=== PATIENT | female | born 1965 | race Caucasian/White ===

== ENCOUNTER 2021-01-12 17:41 | Emergency (ER) | payer BC, SELFPAY ==
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
[2021-01-12 17:44] VITALS: BP 115/82; PULSE 90; RESP 16; TEMP 36.6; O2SAT 99; BMI 18.1
[2021-01-12] MEDS: Diphth,Pertus(ACell),Tet Adult 0.5 ML SYRINGE IM (18:49)
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
== END 2021-01-12 19:57 | disposition home or self-care (01) ==
PROVIDERS: Emergency Provider Internal Medicine; PCP Internal Medicine
DX: S83.92XA Sprain of unspecified site of left knee, initial encounter (principal); S80.212A Abrasion, left knee, initial encounter; V18.0XXA Pedal cycle driver injured in noncollision transport accident in nontraffic accident, initial encounter; M25.462 Effusion, left knee; Y93.55 Activity, bike riding; Y92.414 Local residential or business street as the place of occurrence of the external cause; Y99.9 Unspecified external cause status
CPT/HCPCS: 73560; 90471; 90715; 99283; 99284

== ENCOUNTER → 2021-01-15 13:13 | Outpatient (BNVA) | payer BC, SELFPAY | PROVIDERS: PCP Internal Medicine; Visit Provider Physician Assistant | DX: M25.462 Effusion, left knee (principal); E03.9 Hypothyroidism, unspecified; K85.90 Acute pancreatitis without necrosis or infection, unspecified; Z88.2 Allergy status to sulfonamides; Z88.8 Allergy status to other drugs, medicaments and biological substances | CPT/HCPCS: 20610 ==

== ENCOUNTER 2021-01-29 08:24 | Outpatient (REF) | payer BC, SELFPAY ==
--- NOTE | ~2021-01-29 | XR_ITS ---
EXAMINATION: XR KNEE STANDING, BILATERAL XR KNEE, LEFT CLINICAL INFORMATION: Pain. COMPARISON: Left knee radiographs dated 01/12/2021 TECHNIQUE: AP standing view of the right and left knee. Lateral and sunrise views of the left knee. FINDINGS: There is a mildly displaced fracture through the lateral third of the patella with a resultant fracture gap measuring 0.3 cm. The fracture is in the sagittal plane and contacts the articular surface with approximately 0.3 cm of cortical step-off. No joint space narrowing or marginal osteophytes. No osseous erosion. Small joint effusion, decreased when compared to the prior examination. XR/XR knee standing BI IMPRESSION: Mildly displaced fracture through the lateral aspect of the patella which contacts the articular surface. Small joint effusion, decreased when compared to the prior examination.
--- NOTE | ~2021-01-29 | XR_ITS ---
EXAMINATION: XR KNEE STANDING, BILATERAL XR KNEE, LEFT CLINICAL INFORMATION: Pain. COMPARISON: Left knee radiographs dated 01/12/2021 TECHNIQUE: AP standing view of the right and left knee. Lateral and sunrise views of the left knee. FINDINGS: There is a mildly displaced fracture through the lateral third of the patella with a resultant fracture gap measuring 0.3 cm. The fracture is in the sagittal plane and contacts the articular surface with approximately 0.3 cm of cortical step-off. No joint space narrowing or marginal osteophytes. No osseous erosion. Small joint effusion, decreased when compared to the prior examination. XR/XR knee LT 2V IMPRESSION: Mildly displaced fracture through the lateral aspect of the patella which contacts the articular surface. Small joint effusion, decreased when compared to the prior examination.
== END 2021-01-29 08:25 | disposition home or self-care (01) ==
LOC: HO.HOSX 08:24
PROVIDERS: Visit Provider Orthopaedic Surgery
DX: S82.002D Unspecified fracture of left patella, subsequent encounter for closed fracture with routine healing (principal); X58.XXXD Exposure to other specified factors, subsequent encounter
CPT/HCPCS: 73560; 73565

== ENCOUNTER 2021-02-26 08:21 | Outpatient (REF) | payer BC, SELFPAY ==
--- NOTE | ~2021-02-26 | XR_ITS ---
EXAMINATION: XR KNEE, BILATERAL XR KNEE, LEFT CLINICAL INFORMATION: Knee pain. COMPARISON: 01/29/2021 TECHNIQUE: Standing view both knees with 2 additional views left knee. FINDINGS: Again seen is the lateral patellar fracture. There is still a 0.3 cm step-off present but fracture fragment ends appear less well defined indicating some interval healing. A small joint effusion persists. Standing views of both knees show medial and lateral compartments both maintained. XR/XR knee standing BI IMPRESSION: Healing fracture left patella. Small joint effusion remains.
--- NOTE | ~2021-02-26 | XR_ITS ---
EXAMINATION: XR KNEE, BILATERAL XR KNEE, LEFT CLINICAL INFORMATION: Knee pain. COMPARISON: 01/29/2021 TECHNIQUE: Standing view both knees with 2 additional views left knee. FINDINGS: Again seen is the lateral patellar fracture. There is still a 0.3 cm step-off present but fracture fragment ends appear less well defined indicating some interval healing. A small joint effusion persists. Standing views of both knees show medial and lateral compartments both maintained. XR/XR knee LT 2V IMPRESSION: Healing fracture left patella. Small joint effusion remains.
== END 2021-02-26 08:22 | disposition home or self-care (01) ==
LOC: HO.HOSX 08:21
PROVIDERS: Visit Provider Orthopaedic Surgery
DX: S82.002D Unspecified fracture of left patella, subsequent encounter for closed fracture with routine healing (principal); M25.462 Effusion, left knee
CPT/HCPCS: 73560; 73565

== ENCOUNTER 2021-03-12 07:15 | Outpatient (REF) | payer BC, SELFPAY | END 2021-03-12 07:16 | disposition home or self-care (01) | LOC: HO.HOSX 07:15 | PROVIDERS: Visit Provider Physician Assistant | DX: Z13.89 Encounter for screening for other disorder (principal) ==

== ENCOUNTER 2021-03-15 09:47 | Outpatient (REF) | payer BC, SELFPAY ==
--- NOTE | ~2021-03-15 | XR_ITS ---
EXAMINATION: XR KNEE, LEFT CLINICAL INFORMATION: Pain COMPARISON: None TECHNIQUE: Two views of the left knee. FINDINGS: There is a small joint effusion. Prepatellar soft tissue swelling is noted. There is no acute fracture or dislocation. There is some medial joint space loss. No bony erosion is seen. Some early patellofemoral spurring. XR/XR knee LT 2V IMPRESSION: Some mild early degenerative changes and small effusion with prepatellar soft tissue increase. If further evaluation is warranted consider MR for full evaluation.
--- NOTE | ~2021-03-15 | XR_ITS ---
EXAMINATION: XR KNEE, LEFT CLINICAL INFORMATION: Pain. COMPARISON: 02/26/2021 TECHNIQUE: [place] image left patella. FINDINGS: Exam does demonstrate lateralization of the patella. There is also irregularity of the articulating facet of the lateral patella with the adjacent femur. This could be chronic or the result of previous injury. An acute fracture, of course, cannot be excluded here. XR/XR knee LT 1V IMPRESSION: Lateralization of the patella and irregularity of the lateral patella as described. I cannot exclude acute fracture in the appropriate clinical scenario versus healed fracture injury or degenerative change. Again if further evaluation is warranted recommendation is MRI. Overall the appearance is similar to previous study from 02/26/2021
== END 2021-03-15 09:48 | disposition home or self-care (01) ==
LOC: HO.HOSX 09:47
PROVIDERS: PCP Internal Medicine; Visit Provider Physician Assistant
DX: S82.002D Unspecified fracture of left patella, subsequent encounter for closed fracture with routine healing (principal)
CPT/HCPCS: 73560

== ENCOUNTER 2022-06-16 09:15 | Emergency (ER) | payer BC, OTHER, SELFPAY ==
--- NOTE | ~2022-06-16 | XR_ITS ---
EXAMINATION: XR CHEST CLINICAL INFORMATION: Shortness of breath COMPARISON: None TECHNIQUE: 2 views of the chest were obtained. FINDINGS: No significant abnormality is noted involving the heart, lungs, mediastinum, bony thorax or soft tissues. Mild scoliosis convex right. XR/XR chest 2V IMPRESSION: No acute disease.
[2022-06-16 09:16] VITALS: BP 114/77; PULSE 84; RESP 19; TEMP 36.6; O2SAT 96; BMI 18.8
--- NOTE | 2022-06-16 09:42 | ED.URI ---
HPI - URI/Sore Throat General Chief Complaint: Upper Respiratory Symptoms Stated Complaint: diff breathing Time Seen by Provider: 06/16/22 09:42 Source: patient Mode of arrival: ambulatory Limitations: no limitations History of Present Illness HPI Narrative: 57-year-old female with a longstanding history of tobacco use who presents with 4 days of cough, shortness of breath and wheezing. Patient was seen by her primary care on Friday and given a Zithromax in for presumed bronchitis. Patient reports at that time she had a negative COVID screen. 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 Patient has not done any flu testing. Patient reports some chest discomfort with coughing. She denies any leg swelling or leg pain, vomiting, diarrhea, abdominal pain, headache, neck pain, neck stiffness, skin rash. Patient reports at home her pulse oximeter was 85% Related Data Home Medications Medication Instructions Recorded Confirmed levothyroxine 150 mcg capsule 150 mcg PO DAILY 01/15/21 Previous Rx's Medication Instructions Recorded prednisone 20 mg tablet 40 mg PO DAILY #8 tabs 06/16/22 Allergies Allergy/AdvReac Type Severity Reaction Status Date / Time azithromycin Allergy Unknown Hives Verified 10/29/21 12:32 doxycycline Allergy Unknown hives Verified 10/29/21 12:32 sulfacetamide Allergy Unknown itching Verified 10/29/21 12:32 tetracycline Allergy Unknown itching Verified 10/29/21 12:32 sulfamethoxazole Allergy itching Verified 10/29/21 12:32 [From Bactrim] trimethoprim [From Bactrim] Allergy itching Verified 10/29/21 12:32 Guiatuss Allergy Unknown unknown Uncoded 10/29/21 12:32 Review of Systems Review of Systems: Yes all other systems are reviewed and are negative Constitutional: Constitutional: Reports no additional constitutional complaints, Denies body ache(s), Denies chills, Denies fever(s), Denies headache(s) and Denies weakness Eyes: Eyes: Reports no additional eye complaints and Denies change in vision ENT: Reports system reviewed and no additional complaints, except as documented, Denies dizziness, Denies headache(s), Denies nasal congestion, Denies nasal discharge and Denies neck pain Cardiovascular: Cardiovascular: Reports no additional cardiovascular complaints, Reports chest pain (chest discomfort with coughing only ), Denies leg edema and Reports dyspnea Respiratory: Respiratory: Reports no additional respiratory complaints, Reports cough and Reports dyspnea Gastrointestinal: Gastrointestinal: Reports no additional gastrointestinal complaints, Denies abdominal pain, Denies diarrhea, Denies nausea and Denies vomiting Genitourinary: Genitourinary: Reports no additional female genitourinary complaints and Denies urinary incontinence Musculoskeletal: Musculoskeletal: Reports no additional musculoskeletal complaints, Denies back pain, Denies arthralgias, Denies joint swelling, Denies neck pain, Denies numbness and Denies tingling Integumentary/Breasts: Skin/Breast: Reports system reviewed and no additional complaints, except as docu and Denies rash Neurologic: Reports system reviewed and no additional complaints, except as documented, Denies Abnormal speech present, Denies dizziness, Denies headache(s), Denies numbness, Denies tingling and Denies weakness PMFSH Past Medical History Attestation statement: The following information was validated with the patient. Source: old records reviewed and nursing notes reviewed Medical History Hypothyroid Pancreatitis Surgical History History of shoulder surgery Social History Social History (Updated 06/16/22 @ 10:01 by Kiersten Swanson NP) Patient Tobacco Use Status: Current everyday Tobacco user Advance Directives: No Advance Directives Information Provided: No Current occupational status: employed Current occupation: rt handed/[employer] Physical Exam Vital Signs: Vital Signs: Last Vital Signs Temp 98 F 06/16/22 09:16 Pulse 75 06/16/22 11:22 Resp 16 06/16/22 11:22 BP 114/77 06/16/22 09:16 Pulse Ox 96 06/16/22 09:16 O2 Del Method 06/16/22 09:16 BMI result Body Mass Index 18.8 Const: General: cooperative, healthy appearing, comfortable and no acute distress Orientation/consciousness: patient oriented x3 Limitations: no limitations HEENT: Head: Yes normal to inspection Ears: hearing grossly normal bilaterally and TM's normal bilaterally General nose exam: Normal external nose present Face and sinus: Yes normal facial exam Mouth: Normal oral and palatal mucosa present Throat: Yes posterior oropharynx normal, Yes tonsils normal and Yes uvula midline Eyes: General: appearance normal, both eyes and all related structures Pupils: Equal, round and reactive pupils present Neck: Neck: Yes normal visual inspection, Yes full ROM, Yes no lymphadenopathy and Yes no meningeal signs Chest: Chest palpation & inspection: normal inspection of the chest Resp: Other: Mild expiratory wheezing Effort & Inspection: normal respiratory effort Cardio: Rate: regular rate Rhythm: regular rhythm Peripheral pulses: Peripheral pulses 2+ throughout GI: Inspection: Yes normal to inspection Palpation (GI): Soft to palpation and nontender Auscultation: normal bowel sounds Back/Spine/Pelvis: Thoracic/Lumbar Spine: thoracic and lumbar spine normal to inspection Skin: General skin exam: no rashes or lesions noted Neuro: General: patient oriented x3, no meningeal signs, no focal motor deficits and normal sensation to monofilament Cranial nerves: Yes Equal, round and reactive pupils present Cognition (Neuro): normal cognition Speech: No Abnormal speech present Gait exam (Neuro): Normal gait present Motor exam (neuro): 5/5 motor strength present throughout Extrem: General: Yes normal to inspection Course Course Course Narrative: Patient flu screen is positive. Patient with no hypoxia or tachypnea or tachycardia or fever here. Lungs with some mild wheezing which improved with albuterol MDI. Reviewed worrisome signs and symptoms of when to return to the emergency room. Comfortable plan for discharge home. Medications Administered Discontinued Medications Generic Name Dose Route Start Last Admin Trade Name Freq PRN Reason Stop Dose Admin Albuterol Sulfate 2 puff 06/16/22 09:48 06/16/22 11:19 Albuterol Sulfate 90 Mcg 8 Gm Inhaler INHALE 06/16/22 09:49 2 puff ONCE ONE Administration Prednisone 60 mg 06/16/22 09:48 06/16/22 10:43 Prednisone 20 Mg Tablet PO 06/16/22 09:49 60 mg ONCE ONE Administration Medical Decision Making Medical Decision Making [facility] Narrative: 57-year-old female with a history of tobacco smoking here with complaints of 4 days of cough, wheezing, shortness of breath, chest discomfort with coughing despite being on azithromycin since Friday. On arrival vital are stable. Oxygen saturation is greater than 95%. Patient with mild expiratory wheezing on exam. Exam otherwise is benign. Will obtain chest x-ray, since testing for flu, COVID, RSV. Will give albuterol MDI for wheezing and oral prednisone Differential Diagnosis Differential Diagnoses: The differential diagnosis associated with the presentation includes Viral syndrome, influenza, pneumonia Low concern for PE with no hypoxia, no tachypnea, no tachycardia, no clinical findings concerning for DVT, no history of recent travel or recent surgery Lab Data MDM Lab Attestation statement: I reviewed the patient's lab results. Labs: Lab Results 06/16/22 Range/Units 09:21 Influenza Type A (PCR) POSITIVE A (Negative) Influenza Type B (PCR) NEGATIVE (Negative) RSV RNA Qual (PCR) NEGATIVE (Negative) SARS-CoV-2 RNA (RT-PCR) NEGATIVE (Negative) Independent Interpretation I performed an independent interpretation of an: Plain X-Ray (I independently reviewed the chest x-ray and there was no signs of pneumonia) Radiology Impression Discussion of test interpretation with radiology: I have reviewed the radiologist's reading. Radiologist Impression: EXAMINATION: XR CHEST CLINICAL INFORMATION: Shortness of breath COMPARISON: None TECHNIQUE: 2 views of the chest were obtained. FINDINGS: No significant abnormality is noted involving the heart, lungs, mediastinum, bony thorax or soft tissues. Mild scoliosis convex right. XR/XR chest 2V IMPRESSION: No acute disease. Prescription Management I considered prescription management with: Antiviral Patient has had symptoms for 4 days. Patient's flu screen is positive. At this time I do not feel that Tamiflu would be helpful. This was discussed with the patient. Patient will be discharged home with albuterol MDI to use as needed for cough or wheezing Discharge Plan Discharge Clinical Impression: Bronchitis, Influenza Patient Disposition: Home, Self-Care Instructions: How to Use a Metered-Dose Inhaler (ED), Influenza (ED), Acute Bronchitis (ED) Additional Instructions: Continue your antibiotics X-ray shows no signs of pneumonia Monitor your pulse oximeter at home return for any worsening symptoms Alternate Motrin or Tylenol for pain or fever at home Testing for flu is positive Testing for COVID/RSV are negative Prescriptions: New prednisone 20 mg tablet 40 mg PO DAILY Qty: 8 0RF No Action levothyroxine 150 mcg capsule 150 mcg PO DAILY Referrals: Daniella Eastman MD [Primary Care Provider] - 1 week (for ER follow-up) Stand Alone Forms: Work/School Release Interventions: ED Discharge Assessment Last Done: 06/16/22 11:28 Discharge Date/Time: 06/16/22 11:32
[2022-06-16] MEDS: predniSONE 20 MG TABLET 60 MG PO (10:43)
[2022-06-16 10:47] LABS: Influenza A PCR POSITIVE (Negative); Influenza B PCR NEGATIVE (Negative); Resp Syncy Virus RNA Qual PCR NEGATIVE (Negative); SARS COV2 PCR INHOUSE NEGATIVE (Negative)
[2022-06-16] MEDS: Albuterol Sulfate 90 MCG 8 GM INHALER 2 PUFF INHALE (11:19)
[2022-06-16 11:22] VITALS: PULSE 75; RESP 16; O2SAT 95
== END 2022-06-16 11:32 | disposition home or self-care (01) ==
PROVIDERS: Emergency Provider Emergency Medicine; PCP Internal Medicine
DX: J10.1 Influenza due to other identified influenza virus with other respiratory manifestations (principal); R06.02 Shortness of breath; R05.9 Cough, unspecified; F17.200 Nicotine dependence, unspecified, uncomplicated; Z71.6 Tobacco abuse counseling; Z20.822 Contact with and (suspected) exposure to COVID-19
CPT/HCPCS: 0241U; 71046; 94640; 99284

== ENCOUNTER 2023-04-11 09:17 | Outpatient (AMB) | payer OTHER, SELFPAY ==
--- NOTE | 2023-04-11 09:35 | A.OFFVIS_ITS ---
Intake Intake Visit Reasons: New Prob- Rt Shoulder pain Intake Note: Cony is a 57 year old right hand dominant female who presents today for a evaluation for her right shoulder pain. patient reports ongoing pain for many years and finds relief with cortisone injections. She states that she has RTC repair about 3 years ago at [facility]. Allergies azithromycin Allergy (Unknown, Verified 04/11/23 09:42) Hives doxycycline Allergy (Unknown, Verified 04/11/23 09:42) hives sulfacetamide Allergy (Unknown, Verified 04/11/23 09:42) itching tetracycline Allergy (Unknown, Verified 04/11/23 09:42) itching sulfamethoxazole [From Bactrim] Allergy (Verified 04/11/23 09:42) itching trimethoprim [From Bactrim] Allergy (Verified 04/11/23 09:42) itching Guiatuss Allergy (Unknown, Uncoded 10/29/21 12:32) unknown HPI New Prob- Rt Shoulder pain HPI Details 57-year-old right hand dominant female charleen bianchi presents in the office today for an evaluation of right shoulder pain. The patient reports ongoing pain for many years. She confirms relief with cortisone injections. Patient confirms a right rotator cuff repair 3 years ago at [facility]. 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 No ecchymosis, erythema, or edema. Full shoulder ROM in all planes. Negative cross-body reach. Negative empty can. Negative drop arm. NVI. Office Procedures Injection Trigger Point Multi right upper trapezium three point Trigger Point Multiple: [id number]- Trigger point injection =/>3 Results Reviewed Results Reviewed: 04/11/23 09:58 Lidocaine HCl 2 % MPF [Xylocaine 2 % MPF] 5 ml .ROUTE .[facility] ONE Assessment & Plan Assessment & Plan (1) Trigger point of right shoulder region: Code(s): M25.511 - Pain in right shoulder Plan Ms. Packer is a 57-year-old right hand dominant female who presents in the office today for an evaluation of right shoulder pain. The patient reports ongoing pain for many years. She confirms relief with cortisone injections. Patient confirms a right rotator cuff repair 3 years ago at [facility]. The patient was offered trigger point injections in the right shoulder with plain lidocaine. The patient was explained the risk, benefits, and alternatives to receiving this injection. After receiving consent for the procedure, the patient had three injections done while in office today into the trap muscle by myself and under the supervision of Dr. Cardenas. The patient tolerated the procedure well with no complications. It was recommended for the patient to follow up in 1 week if possible. However she has elected to not schedule at this time. She states she will call the office shoulder she wish to proceed. Follow up will be in one week, or sooner if needed. X-rays of the right shoulder obtained while in the office today and reviewed by me, Erica Gibbs PA-C, revealed no acute fracture or dislocation. Orders: Orders XR shoulder RT min 2V Today M25.519 - Pain in unspecified shoulder Patient Instructions: Scribed for Erica Gibbs PA-C by Lesly Bee medical research associate, on 04/11/2023 at 9:18 am, EST. Coding Level of Care Code New Pt Level 4 (15016) Diagnoses Trigger point of right shoulder region M25.511 CPT Codes Details - Trigger Point Multiple: [id number]- Trigger point injection =/>3 ([id number])
== END 2023-04-11 10:39 | disposition home or self-care (01) ==
PROVIDERS: PCP Internal Medicine; Visit Provider Physician Assistant
DX: M25.511 Pain in right shoulder (principal)
CPT/HCPCS: 20553; 99214

== ENCOUNTER 2023-04-11 15:11 | Outpatient (REF) | payer OTHER, SELFPAY ==
--- NOTE | ~2023-04-11 | XR_ITS ---
EXAMINATION: XR SHOULDER, RIGHT CLINICAL INFORMATION: Pain in unspecified shoulder. COMPARISON: None available. TECHNIQUE: Three views of the right shoulder. FINDINGS: Dextroscoliosis of the imaged upper thoracic spine. Moderate degenerative changes in the acromioclavicular joint with joint space narrowing and hypertrophic change. Degenerative changes with hypertrophic change along the glenoid. Focal cortical defect with cystic lucency along the superolateral aspect of the humeral head. XR/XR shoulder RT min 2V IMPRESSION: Focal cortical defect with cystic lucency along the superolateral aspect of the humeral head. Moderate degenerative changes in the acromioclavicular joint. Additional imaging with CT scan or MRI should be considered for better visualization as these modalities are much more sensitive for detection of fracture or other underlying pathology.A 1.8 cm stone identified in the gallbladder. A 1.8 cm stone identified in the gallbladder. A 1.8 cm stone identified in the gallbladder.
== END 2023-04-11 15:12 | disposition home or self-care (01) ==
LOC: HO.HOSX 15:11
PROVIDERS: Visit Provider Physician Assistant
DX: M25.511 Pain in right shoulder (principal)
CPT/HCPCS: 20553; 73030

== ENCOUNTER 2023-12-08 08:04 | Outpatient (AMB) | payer OTHER, SELFPAY ==
--- NOTE | 2023-12-08 08:20 | AM.OFFWIN_ITS ---
Intake Vital Signs 12/08/23 08:21 Height 5 ft 7 in BP 110/62 Blood Pressure Location Lt brachial Position Sitting Pulse 62 Pulse Source Pulse Oximeter Temp 98.2 F Temp Source Temporal Artery Scan Pulse Oximetry (%) 97 Intake Visit Reasons: EP both ears blocked Intake Note: pt is here for ear blockage bilateral Patient Tobacco Use Status: Current everyday Tobacco user Allergies azithromycin Allergy (Unknown, Verified 12/08/23 08:21) Hives doxycycline Allergy (Unknown, Verified 12/08/23 08:21) hives sulfacetamide Allergy (Unknown, Verified 12/08/23 08:21) itching tetracycline Allergy (Unknown, Verified 12/08/23 08:21) itching sulfamethoxazole [From Bactrim] Allergy (Verified 12/08/23 08:21) itching trimethoprim [From Bactrim] Allergy (Verified 12/08/23 08:21) itching Guiatuss Allergy (Unknown, Uncoded 10/29/21 12:32) unknown Do you need a note to return to daycare/school/sports/work: No HPI HPI Comments History of Present Illness Details 58 y/o female patient who presents to [facility] in clinic with c/o bilateral ear blockage. This is a chronic issue, and usually she sees ENT for routine Lavage/Irrigation. Reports using Debrox for 3 days with no improvement. 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 Physical Exam Vital Signs: Last Vital Signs Temp 98.2 F 12/08/23 08:21 Pulse 62 12/08/23 08:21 BP 110/62 12/08/23 08:21 Pulse Ox 97 12/08/23 08:21 Const General: comfortable and no acute distress Orientation/consciousness: patient oriented x3 HEENT Ears: external ears normal and TM abnormal obstructed by cerumen bilateral Neuro General: patient oriented x3, gait normal and moves all extremities Psych Speech and movement: Normal speech and movement present Office Procedures Cerumen Removal From which ear canal was the cerumen removed: bilateral Removal: irrigation Notes: patient tolerated procedure well [id number] Irrigation/Lavage Assessment & Plan Assessment & Plan (1) Impacted cerumen of both ears: Code(s): H61.23 - Impacted cerumen, bilateral Plan: In office Bilateral Ear Lavage, un-successful. Pt declined Debrox Drops. Pt wants to go to ED. Coding Level of Care Code Est Pt Level 3 (58024) Diagnoses Impacted cerumen of both ears H61.23 CPT Codes Office Procedure - CPT: 46954-Wpa Irrigation/Lavage ([id number]) Time Spent (min) 20
[2023-12-08 08:21] VITALS: BP 110/62; PULSE 62; TEMP 36.8; O2SAT 97
== END 2023-12-08 09:11 | disposition home or self-care (01) ==
PROVIDERS: PCP Internal Medicine; Visit Provider Nurse Practitioner Family
DX: H61.23 Impacted cerumen, bilateral (principal)
CPT/HCPCS: 99213

== ENCOUNTER 2023-12-22 08:02 | Outpatient (AMB) | payer OTHER, SELFPAY ==
[2023-12-22 08:07] VITALS: BP 102/68; PULSE 74; TEMP 36.8; O2SAT 97; BMI 18.3
--- NOTE | 2023-12-22 08:07 | AM.OFFWIN_ITS ---
Intake Vital Signs 12/22/23 08:07 Height 5 ft 7 in Weight 117 lb BMI 18.3 BP 102/68 Blood Pressure Location Rt brachial Position Sitting Pulse 74 Pulse Source Pulse Oximeter Temp 98.3 F Temp Source Oral Pulse Oximetry (%) 97 Oxygen Delivery Method Room Air Intake Visit Reasons: EP LT eye sty Intake Note: pt here c/o sty in left eye Patient Tobacco Use Status: Current everyday Tobacco user Allergies azithromycin Allergy (Unknown, Verified 12/22/23 08:07) Hives doxycycline Allergy (Unknown, Verified 12/22/23 08:07) hives sulfacetamide Allergy (Unknown, Verified 12/22/23 08:07) itching tetracycline Allergy (Unknown, Verified 12/22/23 08:07) itching sulfamethoxazole [From Bactrim] Allergy (Verified 12/22/23 08:07) itching trimethoprim [From Bactrim] Allergy (Verified 12/22/23 08:07) itching Guiatuss Allergy (Unknown, Uncoded 12/22/23 08:07) unknown Medication List - Last Reconciled 12/22/23 by Cha Parrish NP levothyroxine 150 mcg PO DAILY Do you need a note to return to daycare/school/sports/work: No HPI EP LT eye sty HPI Details This note is constructed using voice recognition software. While every effort has been made to ensure accuracy, billposting supervisor errors may have been inc luded. 58 y.o. female presents for left upper l id stye, onset Friday. She has had clear discharge, no itch, mildly tender. No change in vision. No sick contacts. No additional features. Has done warm compresses, several per day, with no relief. She has not a contact wearer. She did throw away her mascara after using it. 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 Review of Systems Const All systems reviewed & are unremarkable except as noted in HPI and below Physical Exam Vital Signs: Last Vital Signs Temp 98.3 F 12/22/23 08:07 Pulse 74 12/22/23 08:07 BP 102/68 12/22/23 08:07 Pulse Ox 97 12/22/23 08:07 Oxygen Delivery Method Room Air 12/22/23 08:07 BMI result Body Mass Index 18.3 Const General: cooperative, healthy appearing, comfortable, no acute distress and alert Limitations: no limitations HEENT Head: Yes normal to inspection and Yes normocephalic Ears: hearing grossly normal bilaterally General nose exam: Normal external nose present Face and sinus: Yes normal facial exam and Yes sinuses nontender Mouth: Normal oral and palatal mucosa present and tongue normal Teeth and gingiva: dentition normal Throat: Yes posterior oropharynx normal Eyes Alignment and Position: alignment normal and position normal Periorbital: periorbital findings normal Eyelids: Yes eyelid abnormality (Left upper lid stye.) Conjunctivae: conjunctivae normal Corneas: corneas normal Pupils: Equal, round and reactive pupils present EOM: EOMs intact bilaterally Direct Ophthalmoscopy: normal light reflex Neck Neck: Yes normal visual inspection, Yes full ROM and Yes no lymphadenopathy Neuro Cranial nerves: Yes Equal, round and reactive pupils present Psych Appearance: grossly normal Mental Status: mental status grossly normal Speech and movement: Normal speech and movement present Affect: normal affect Assessment & Plan Assessment & Plan (1) Hordeolum externum (stye): Code(s): H00.019 - Hordeolum externum unspecified eye, unspecified eyelid Qualifiers: Laterality: left Eyelid: upper Qualified Code(s): H00.014 - Hordeolum externum left upper eyelid Plan: Advised ongoing use of warm compresses. Advised throw away any eye makeup used. Prescribed antibiotic ointment for eye. Follow-up as needed with worsening or failure to resolve. Plan See above for full details and plan. Medications: New erythromycin Apply to left eye 0.5 inches ophthalmic (eye) QID 7 days 3.5 grams 0RF Coding Level of Care Code Est Pt Level 3 (18322) Diagnoses Hordeolum externum of left upper eyelid H00.014 Laterality: left Eyelid: upper
== END 2023-12-22 08:21 | disposition home or self-care (01) ==
PROVIDERS: PCP Internal Medicine; Visit Provider Registered Nurse
DX: H00.014 Hordeolum externum left upper eyelid (principal)
CPT/HCPCS: 99212

== ENCOUNTER 2024-02-17 08:05 | Outpatient (AMB) | payer OTHER, SELFPAY ==
--- NOTE | 2024-02-17 08:07 | MHC.OFFWIV ---
Intake Vital Signs 02/17/24 08:08 Height 5 ft 7 in Weight 119 lb BMI 18.6 BP 112/74 Blood Pressure Location Lt brachial Position Sitting Pulse 64 Pulse Source Pulse Oximeter Temp 98.2 F Temp Source Oral Pulse Oximetry (%) 98 Oxygen Delivery Method Room Air Intake Visit Reasons: EP-bronchitis Intake Note: Patient here for barking cough that has been present since early January. Patient Tobacco Use Status: Current everyday Tobacco user Allergies azithromycin Allergy (Unknown, Verified 02/17/24 08:09) Hives doxycycline Allergy (Unknown, Verified 02/17/24 08:09) hives sulfacetamide Allergy (Unknown, Verified 02/17/24 08:09) itching tetracycline Allergy (Unknown, Verified 02/17/24 08:09) itching sulfamethoxazole [From Bactrim] Allergy (Verified 02/17/24 08:09) itching trimethoprim [From Bactrim] Allergy (Verified 02/17/24 08:09) itching Guiatuss Allergy (Unknown, Uncoded 02/17/24 08:09) unknown Do you need a note to return to daycare/school/sports/work: Yes HPI HPI Comments History of Present Illness Details Patient is a 58-year-old female who is a current smoker complaining of a cough since January 21. She states it sounds like a barking cough but it is a dry cough. She denies any sinus pain ear pain shortness of breath, wheezing, nausea vomiting diarrhea or fevers. She states she saw her doctor for it originally on 01/21 but they told her it was viral. 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 Review of Systems Const All systems reviewed & are unremarkable except as noted in HPI and below Physical Exam Vital Signs: Last Vital Signs Temp 98.2 F 02/17/24 08:08 Pulse 64 02/17/24 08:08 BP 112/74 02/17/24 08:08 Pulse Ox 98 09/03/24 08:08 Oxygen Delivery Method Room Air 02/17/24 08:08 BMI result Body Mass Index 18.6 Const General: cooperative, healthy appearing, comfortable and no acute distress Orientation/consciousness: patient oriented x3 Limitations: no limitations HEENT Head: Yes normal to inspection Ears: hearing grossly normal bilaterally, external ears normal and TM's normal bilaterally General nose exam: Normal external nose present, Normal nares present and No nasal discharge present Face and sinus: Yes normal facial exam and Yes sinuses nontender Mouth: Normal oral and palatal mucosa present and moist mucous membranes Throat: Yes tonsils normal, Yes uvula midline and Yes posterior oropharynx abnormal (Erythema) Eyes General: appearance normal, both eyes and all related structures Neck Neck: Yes normal visual inspection Resp Effort & Inspection: normal respiratory effort, able to speak in complete sentences, Actively coughing, no respiratory distress, not tachypneic, no tripod positioning and no use of accessory muscles Auscultation: clear to auscultation bilaterally Cardio Rate: regular rate Rhythm: regular rhythm Heart sounds: normal S1 and S2 Skin General skin exam: no rashes or lesions noted Neuro General: patient oriented x3 Extrem General: Yes normal to inspection and Yes no clubbing, cyanosis or edema Assessment & Plan Assessment & Plan (1) URI (upper respiratory infection): Code(s): J06.9 - Acute upper respiratory infection, unspecified Qualifiers: URI type: unspecified URI Qualified Code(s): J06.9 - Acute upper respiratory infection, unspecified Plan: Vital signs are stable, lungs are clear, no wheezing appreciated on exam. Was going to treat patient for walking pneumonia with azithromycin but with her many allergies, I can only treat with Augmentin. Also sent an inhaler, she states she is familiar with how to use it. Plan see above Medications: New albuterol sulfate 90 mcg/actuation 2 puffs inhalation Q6H PRN 8.5 grams 0RF shortness of breath or wheezing or cough amoxicillin-pot clavulanate 875-125 mg 1 tab PO Q12H 10 tabs 0RF Coding Level of Care Code New Pt Level 3 (73865) Diagnoses Upper respiratory tract infection, unspecified type J06.9 URI type: unspecified URI
[2024-02-17 08:08] VITALS: BP 112/74; PULSE 64; TEMP 36.8; O2SAT 98; BMI 18.6
== END 2024-02-17 09:24 | disposition home or self-care (01) ==
PROVIDERS: PCP Internal Medicine; Visit Provider Physician Assistant
DX: J06.9 Acute upper respiratory infection, unspecified (principal)
CPT/HCPCS: 99203